=== PATIENT | female | born 1955 | race Caucasian/White ===

== ENCOUNTER 2016-08-19 07:27 | Inpatient (IN) | payer OTHER ==
--- NOTE | 2016-08-19 08:28 | PROVIDER DOCUMENTATION ---
HPI-Neurological Disorder <JuanDoug - Last Filed: 08/19/16 10:13> - General Source: family Unable to obtain history due to:: altered - History of Present Illness-Neuro Headache Location: reports: other (none) Severity: reports: severe Onset/Duration: reports: other (sometime since yest) Timing: reports: still present (daughter noticed change when went over this am) Character of Altered Mental Status: reports: disoriented, confused Any recent trauma/injury?: reports: none New weakness or altered sensation location:: reports: none Cognitive Baseline: alert, oriented x3 Gait Baseline: walks without assistance Associated Symptoms: reports: confusion (says cannot remember) Similar Symptoms Previously?: No Recently seen or treated by another doctor?: No <Steve Erazo - Last Filed: 08/19/16 11:00> - General Chief Complaint: Altered Mental Status Stated Complaint: AMS Time Seen by Provider: 08/19/16 08:20 - History of Present Illness-Neuro Nature of Presenting Problem: daughter gives hx. Says ps has had intermittant sl confusion for sev months,. Was NL self yest. This AM, was much more confused that usual. No fever known. No recent med changes known. (Steve rEazo) Review of Systems - Adult - REVIEW OF SYSTEMS - ADULT Constitutional: reports: no symptoms reported Eyes: reports: no symptoms reported Ears, Nose, Mouth & Throat: reports: no symptoms reported Cardiovascular: reports: no symptoms reported Respiratory: reports: no symptoms reported Genitourinary: reports: no symptoms reported Musculoskeletal: reports: no symptoms reported Integumentary: reports: no symptoms reported Neurological: reports: see HPI Psychiatric: reports: no symptoms reported Endocrine: reports: no symptoms reported Hematologic/Lymphatic: reports: no symptoms reported Allergic/Immunologic: reports: no symptoms reported <Steve Erazo - Last Filed: 08/19/16 11:00> Past History - Adult - PAST MEDICAL HISTORY-ADULT Review of Records: reports: Medications Reviewed <Steve Erazo - Last Filed: 08/19/16 11:00> Physical Exam- Neurological - Physical Exam-Neuro Initial Vital Signs Reviewed: Yes General Appearance: appears well, alert, no apparent distress Eye Exam: bilateral eye: normal inspection, PERRL, EOMI HENMT: normocephalic/atraumatic, moist mucous membranes, normal ENT inspection, pharynx normal Head Injury: no evidence of injury Neck: full range of motion, supple Respiratory: lungs clear, normal breath sounds, no respiratory distress Cardiovascular: no murmur, tachycardia Abdominal Exam: non tender, soft Extremity: normal range of motion, non-tender, 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 Disoriented to all but self.) - Glascow Coma Scale Best Eye Response: (4) open spontaneously Best Verbal Response: (5) oriented Best Motor Response: (6) obeys commands <Steve Erazo - Last Filed: 08/19/16 11:00> Progress - XRAY 1 XRAY: Bilateral XRAY Study: Chest XRAY Interpretation: NEGATIVE - CT/MRI 1 CT Study: Head CT Results: NEGATIVE <Doug Martinez - Last Filed: 08/19/16 10:13> - CONSULTS/PCP/HOSPITALIST Notification #1 *Consult/PCP/Hospitalist*: Manny Time Discussed: 10:57 Consult Disposition: Admit <Steve Erazo - Last Filed: 08/19/16 11:00> - PLAN OF CARE/RESULTS Progress/Plan/Lab Results: Vital Signs Temp Pulse Resp BP Pulse Ox 08/19/16 08:03 97.8 F 137 H 20 187/108 98 Laboratory 08/19/16 08/19/16 08/19/16 09:55 09:55 09:47 WBC 8.47 RBC 5.24 Hgb 15.2 Hct 44.2 MCV 84.4 MCH 29.0 MCHC 34.4 RDW Std Deviation 12.3 Plt Count 218 MPV 11.3 H Immature Gran % (Auto) 0.7 H Neut % (Auto) 72.8 Lymph % (Auto) 16.6 L [place] % (Auto) 8.1 Eos % (Auto) 1.2 Baso % (Auto) 0.6 Immature Gran # (Auto) 0.06 H Neut # (Auto) 6.16 Lymph # (Auto) 1.41 [place] # (Auto) 0.69 H Eos # (Auto) 0.10 Baso # (Auto) 0.05 Sodium Potassium Chloride Carbon Dioxide Anion Gap BUN Creatinine Estimated GFR/1.73 m2 BUN/Creatinine Ratio Glucose Calculated Osmolality Calcium Total Bilirubin AST ALT Alkaline Phosphatase Total Protein Albumin Globulin Albumin/Globulin Ratio TSH Urine Source CLEAN CATCH Urine Color YELLOW Urine Clarity CLEAR Urine pH 6.5 Ur Specific [place] 1.015 Urine Protein 1+(30 mg/dL) A Urine Ketones 1+(Small) A Urine Blood NEGATIVE Urine Nitrite NEGATIVE Urine Bilirubin NEGATIVE Urine Urobilinogen 1+(1 mg/dL) Urine Microscopic RBC Not Reportable Urine WBC 1+ A Urine Microscopic WBC 20-40 A Ur Epithelial Cells <10 Urine Bacteria 2+ Urine Yeast PRESENT Urine Glucose 3+(500 mg/dL) A Urine Opiates Screen NONE DETECTED Ur Oxycodone Screen NONE DETECTED Urine Methadone Screen NONE DETECTED Ur Barbituates Screen NONE DETECTED Ur Tricyclics Screen NONE DETECTED Ur Phencyclidine Scrn NONE DETECTED Ur Amphetamines Screen NONE DETECTED U Methamphetamines Scrn NONE DETECTED Urine MDMA Screen NONE DETECTED U Benzodiazepines Scrn NONE DETECTED Urine Cocaine Screen NONE DETECTED U Cannabinoids Screen NONE DETECTED 08/19/16 08/19/16 08:30 08:30 WBC RBC Hgb Hct MCV MCH MCHC RDW Std Deviation Plt Count MPV Immature Gran % (Auto) Neut % (Auto) Lymph % (Auto) [place] % (Auto) Eos % (Auto) Baso % (Auto) Immature Gran # (Auto) Neut # (Auto) Lymph # (Auto) [place] # (Auto) Eos # (Auto) Baso # (Auto) Sodium 134 L Potassium 3.5 Chloride 95 L Carbon Dioxide 26 Anion Gap 14 BUN 10 Creatinine 0.8 Estimated GFR/1.73 m2 > 60 BUN/Creatinine Ratio 13 Glucose 408 H* Calculated Osmolality 284 Calcium 9.8 Total Bilirubin 0.80 AST 17 ALT 12 Alkaline Phosphatase 148 H Total Protein 7.9 Albumin 4.4 Globulin 4.0 Albumin/Globulin Ratio 1.0 TSH 21.61 H Urine Source Urine Color Urine Clarity Urine pH Ur Specific [place] Urine Protein Urine Ketones Urine Blood Urine Nitrite Urine Bilirubin Urine Urobilinogen Urine Microscopic RBC Urine WBC Urine Microscopic WBC Ur Epithelial Cells Urine Bacteria Urine Yeast Urine Glucose Urine Opiates Screen Ur Oxycodone Screen Urine Methadone Screen Ur Barbituates Screen Ur Tricyclics Screen Ur Phencyclidine Scrn Ur Amphetamines Screen U Methamphetamines Scrn Urine MDMA Screen U Benzodiazepines Scrn Urine Cocaine Screen U Cannabinoids Screen Orders Category Date Time Status HEAD W/O CONTRAST [CT] Stat Exams 08/19/16 08:29 Draft cxr [CHEST-2 VIEWS] [RAD] Stat Exams 08/19/16 08:29 Draft CBC WITH ELECTRONIC DIFF [HEME] Stat Lab 08/19/16 09:47 Completed COMPREHENSIVE METABOLIC PANEL [CHEM] Stat Lab 08/19/16 08:30 Completed TSH Stat Lab 08/19/16 08:[address] W/POSS RFLX CULT [URINALYSIS] Stat Lab 08/19/16 09:55 Completed URINE CULTURE [RM] Routine Lab 08/19/16 10:[address]UG S[address]EN [address] Stat Lab 08/19/16 09:55 Completed 0.9% Sodium Chloride Inj [Ns] 1,000 ml Med 08/19/16 09:16 Discontinued IV 999 mls/hr Insulin Human Reg Dose ([address] [Humulin R Dose ([place] Med 08/19/16 09:31 Discontinued )] 1 dose .ROUTE .STK-MED ONE Insulin Human Regular [Humulin R] Med 08/19/16 09:16 Discontinued 5 unit IV NOW ONE EKG [EKG] Stat Ther 08/19/16 08:35 Ordered (Steve Erazo) Departure <Doug Martinez - Last Filed: 08/19/16 10:13> - Departure Time of Disposition Order: 10:58 Certified Medical Emergency: Emergent <Steve Erazo - Last Filed: 08/19/16 11:00> - Departure DIAGNOSIS: Altered mental status Qualifiers: Altered mental status type: disorientation Qualified Code(s): R41.0 - Disorientation, unspecified Urinary tract infection Qualifiers: Urinary tract infection type: site unspecified Hematuria presence: without hematuria Qualified Code(s): N39.0 - Urinary tract infection, site not specified Disposition: ADMITTED INPATIENT 09 Condition: Good Physician Attestation - Physician Attestation I, the provider, attest to the following statement:: Steve Erazo Physician documentation Attestation:: This documentation recorded by the scribe accurately reflects the service I personally performed and the decisions made by me. <Steve Erazo - Last Filed: 08/19/16 11:00>
[2016-08-19 09:06] LABS: AGAP 14; ALBUMIN 4.4 g/dL (3.5-5.0); ALKALINE PHOSPHATASE 148 U/L (32-104); BUN 10 mg/dL (8-22); CALCIUM 9.8 mg/dL (8.8-10.2); CHLORIDE 95 mmol/L (98-107); COSMO 284; GOT 17 U/L (10-30); GPT 12 U/L (10-36); POTASSIUM 3.5 mmol/L (3.5-5.1); SODIUM 134 mmol/L (136-145); TCO2 26 mmol/L (25-35); TOTAL PROTEIN 7.9 g/dL (6.3-8.3)
--- NOTE | 2016-08-19 09:12 | Diag Imaging Result Document ---
PROCEDURE NAME: HEAD W/O CONTRAST - 08/19/[address]: A CT dose reduction protocol was used. COMPARISON: None. FINDINGS: The ventricles and sulci are normal in size and contour. There is no mass, hemorrhage, or evidence of acute ischemia. The bony calvaria is intact. The visualized paranasal sinuses and mastoid air cells are clear. IMPRESSION: Negative head CT. [facility]
--- NOTE | 2016-08-19 09:14 | Diag Imaging Result Document ---
PROCEDURE NAME: CHEST-2 VIEWS - 08/19/2016 CHEST X-RAY. 2 VIEWS: COMPARISON: None. FINDINGS: The lungs are normally expanded and clear. Heart size and mediastinal contours are normal. No pneumothorax or pleural effusion. IMPRESSION: Negative exam.
[2016-08-19] MEDS ORDERED: NS 1,000 ML IV ONE (09:16)
[2016-08-19] MEDS ORDERED: HUMULIN R IV ONE (09:16)
[2016-08-19] MEDS ORDERED: HUMULIN R DOSE (PARKWAY) ONE (09:31)
[2016-08-19 09:48] LABS: MANUAL DIFF NEEDED? NO
[2016-08-19 09:49] LABS: BASO% 0.6 % (0.0-0.8); EOS% 1.2 % (0.0-10.0); HEMATOCRIT 44.2 % (37.0-47.0); HEMOGLOBIN 15.2 g/dL (12.0-16.0); IMM GRAN# 0.06 X1000 (0.0-0.04); IMM GRAN% 0.7 % (0.0-0.5); LYMPH# 1.41 X1000 (1.2-3.4); LYMPH% 16.6 % (20.5-51.1); MCHC 34.4 g/dL (33-37); MCV 84.4 FL (81-99); MONO# 0.69 X1000 (0.11-0.59); MONO% 8.1 % (1.7-9.3); MPV 11.3 FL (7.4-10.4); NEUT% 72.8 % (42.2-75.2); PLT 218 X1000 (130-400); RBC 5.24 XMIL (4.2-5.4)
[2016-08-19 10:13] LABS: URINE SOURCE CLEAN CATCH
[2016-08-19 10:28] LABS: UR AMPHETAMINES QUAL NONE DETECTED (NONE DETECT); UR BARBITUATES QUAL NONE DETECTED (NONE DETECT); UR BENZODIAZEPIN QUAL NONE DETECTED (NONE DETECT); UR CANNABINOIDS QUAL NONE DETECTED (NONE DETECT); UR COCAINE QUAL NONE DETECTED (NONE DETECT); UR MDMA QUAL NONE DETECTED (NONE DETECT); UR METHADONE QUAL NONE DETECTED (NONE DETECT); UR METHAMPHETAMINE QUAL NONE DETECTED (NONE DETECT); UR OPIATES QUAL NONE DETECTED (NONE DETECT); UR OXYCODONE QUAL NONE DETECTED (NONE DETECT); UR PCP QUAL NONE DETECTED (NONE DETECT); UR TCA QUAL NONE DETECTED (NONE DETECT)
[2016-08-19 10:32] LABS: BILIRUBIN URINE NEGATIVE (NEGATIVE); BLOOD URINE NEGATIVE (NEGATIVE); CLARITY CLEAR (CLEAR); COLOR YELLOW; LEUKOCYTES URINE 1+ (NEGATIVE); NITRITE URINE NEGATIVE (NEGATIVE); PH URINE 6.5; PROTEIN URINE 1+(30 mg/dL) mg/dL (NEGATIVE); SP GRAVITY URINE 1.015; UROBILINOGEN URINE 1+(1 mg/dL)
[2016-08-19 10:37] LABS: URINE WBC 20-40 /HPF (<10)
[2016-08-19 10:38] LABS: URINE CULTURE PL NEEDED? YES; URINE EPITHELIAL CELLS <10 /HPF (<10)
[2016-08-19] MEDS ORDERED: ROCEPHIN 1 GM/NS 50 ML IV ONE (11:00)
[2016-08-19] MEDS ORDERED: ZOFRAN PO PRN (11:07)
[2016-08-19] MEDS ORDERED: TYLENOL PO PRN (11:07)
[2016-08-19] MEDS: ROCEPHIN 1 GM/NS 50 ML IV SCH ×2 (11:15→22:33)
--- NOTE | 2016-08-19 13:24 | EKG Report ---
Test Performed on : 08/19/2016 12:56:26 PM Test Reason : EVAL Blood Pressure : / mmHG Vent. Rate : 077 BPM Atrial Rate : 077 BPM P-R Int : 148 ms QRS Dur : 068 ms QT Int : 372 ms P-R-T Axes : 002 014 020 degrees QTc Int : 420 ms Normal sinus rhythm. Normal ECG No previous ECGs available Unconfirmed Result
[2016-08-19] MEDS: NS 1,000 ML IV SCH (13:50)
[2016-08-19] MEDS: HUMULIN R (PARKWAY) SUBQ SCH ×3 (14:07→21:24)
[2016-08-19 17:35] LABS: HEMOGLOBIN A1C 10.3 % (4.8-6.0)
--- NOTE | 2016-08-19 19:33 | HISTORY AND PHYSICAL ---
PRIMARY CARE PHYSICIAN: Dr. Juice Fallon. CHIEF COMPLAINT: Altered mental status. HISTORY OF PRESENT ILLNESS: This is a 61-year-old female with a history of it looks like maybe hypothyroid and hypertension who presented to the emergency room with family members, stating that the patient has had some intermittent confusion over the last several months. Yesterday she was normal. This morning she was much more confused than usual, being unable to perform her ADLs, unable to function in her own normal setting. The patient at the time of this interview is confused. She is unable to give any past history. When asked where she is, she states "I am here" and points to the bed. Therefore, history is taken from the chart as there is no family present. CT of the head done revealed no mass, hemorrhage or evidence of acute ischemia. Negative CT per Radiology read. Chest x-ray was negative. She was found to have a glucose of 408 and a TSH of 21.61. She was given 5 units of regular insulin, a liter of fluid and admitted for further evaluation and treatment. PAST MEDICAL HISTORY: Hypothyroid. PAST SURGICAL HISTORY: Cholecystectomy. Hysterectomy. SOCIAL HISTORY: Unsure. ALLERGIES: Latex with unknown reaction. HOME MEDICATIONS: We have no idea. We will call family members and try to get a list. REVIEW OF SYSTEMS: Unable to obtain due to patient's mental status. PHYSICAL EXAMINATION: GENERAL: This is a 61-year-old female who is sitting up in the bed in no distress. VITAL SIGNS: Blood pressure is 111/65 with a heart rate of 87, respirations are 18, temperature is 98.2 degrees oral with room air saturations 100%. HEENT: Head is normocephalic, atraumatic. Pupils equal, round, react to light. EOMS are intact. Sclerae are anicteric. Mucous membranes are moist. NECK: Supple. Trachea midline. CARDIOVASCULAR: Regular rate and rhythm S1, S2 appreciated. PULMONARY: Breath sounds are clear. No increased work of breathing noted. BACK: No CVAT. No spine tenderness. MUSCULOSKELETAL: Good range of motion to joints. EXTREMITIES: No clubbing, cyanosis, or edema. Calves are nontender. Pulses are palpable x4. NEUROLOGIC: She does know her name. She can tell you her age. Does not remember her birthday. When asked where she is, she states here and points to the bed. She is not sure if this is the hospital or not. She follows commands intermittently, sometimes stating, "I just don't want to". DIAGNOSTICS: Chest x-ray was negative. CT of the head was negative. WBC was 8.4 with a hemoglobin 15.2, hematocrit 44.2, and platelets 218,000. Sodium is 134, potassium 3.5, BUN 10, creatinine 0.8, with a glucose of 408. After insulin, glucose was down to the mid 200s. TSH was 21.61 with a negative urine drug screen. ASSESSMENT AND PLAN: 1. Altered mental status. 2. We are unsure of the patient's baseline at present. We will obtain neurologic checks, attempt to get further history from the family with a more definite baseline. Her causes could be multifactorial. She does have an elevated glucose, her thyroid level is off. We are unsure of any injuries, although computed tomography scan was negative for a bleed. 3. Hyperglycemia. The patient is unaware of any previous diabetes diagnosis. In her old records, there is no mention. We did obtain a hemoglobin A1c after she got to the floor and it was 10.3, so we know she does have diabetes. We will attempt to find any history of any medications. In the meantime, she will be placed on pattern blood glucose with sliding scale insulin and followed. 4. Thyroid disease. Her thyroid stimulating hormone is 21.61. We will attempt to identify her home medications. In the meantime, we will start her on levothyroxine 75 mcg and trend her labs. 5. For deep venous thrombosis prophylaxis, we will not give any Lovenox as we are really unsure of any falls or injuries she could have had. We will give [employer] and for gastrointestinal prophylaxis we will give Prilosec. 6. The patient's urine was positive for ketones as well as 20-40 microscopic white blood cells, 2+ bacteria and yeast. We will send this for a culture. She was given Rocephin in the emergency room. We will go ahead and continue this. Further treatments pending hospital course. Dictated by STEFAN Pruitt for Leandro Bryant MD
[2016-08-20] MEDS ORDERED: LABETALOL ONE (02:58)
[2016-08-20] MEDS: NS 1,000 ML IV SCH ×2 (03:51→18:17)
[2016-08-20] MEDS: PRILOSEC PO SCH (06:20)
[2016-08-20] MEDS: HUMULIN R (PARKWAY) SUBQ SCH ×5 (06:21→22:22)
[2016-08-20] MEDS ORDERED: SYNTHROID PO SCH ×2 (07:00→07:16)
--- NOTE | 2016-08-20 08:38 | PROGRESS NOTE ---
DATE: 08/20/2016 SUBJECTIVE: The patient states she is a little bit more aware this morning. Knows she is in the hospital. Does not remember why she came to the hospital or how she got here. Does remember having pain in her left foot for which she is seeing orthopedics in [place] and has had an MRI but does not remember the results. PHYSICAL EXAMINATION: Vital Signs: Temperature 98 degrees, pulse 87, respiratory rate 18, BP 111/65, saturation 100% on room air. General: The patient is a well-developed female who appears her stated age of 61. She currently is awake, alert, and appears somewhat oriented. HEENT: Normocephalic, atraumatic. Neck: Supple. CV: Regular rate. Chest: Relatively clear. Abdomen: Soft. Extremities: Moves all extremities. Neurologic: No focal changes. Skin: Warm and dry. No rashes. DIAGNOSTIC DATA: CBC and CMP essentially normal with a glucose at 408, A1c 10.3. TSH 21. ASSESSMENT: 1. Diabetes. Uncertain if she is truly new onset diabetic or if she does not remember being told that she has diabetes in the past, given her acute altered mental status. However, we will place her on Glucophage sliding scale insulin and follow. We will also add Lantus as her A1c is elevated at 10. 2. Hypothyroidism. Again, unclear if patient has actually been taking her Synthroid. Therefore, we will start her back on her Synthroid; however we will increase her to 100 momentarily. We will continue to follow. 3. Acute delirium, unclear etiology. Certainly her significant hyperglycemia and hypothyroidism could be a contributing factor. She has no infectious symptoms currently. It is possible that she has a urinary tract infection. We will start her on Rocephin and follow.
[2016-08-20] MEDS: GLUCOPHAGE PO SCH ×2 (09:07→16:51)
[2016-08-20] MEDS: LANTUS INSULIN (PARKWAY) SUBQ SCH (09:07)
[2016-08-20] MEDS: ROCEPHIN 1 GM/NS 50 ML IV SCH ×2 (11:10→22:22)
[2016-08-20] MEDS ORDERED: ZOFRAN ODT PO PRN (17:39)
[2016-08-20] MEDS ORDERED: ZOFRAN ODT ONE (17:41)
[2016-08-21 06:32] LABS: HEMOGLOBIN 12.9 g/dL (12.0-16.0); MCH 29.4 PG (27-31); MCHC 33.9 g/dL (33-37); MCV 86.6 FL (81-99); MPV 11.2 FL (7.4-10.4); RBC 4.39 XMIL (4.2-5.4)
[2016-08-21] MEDS: PRILOSEC PO SCH (06:40)
[2016-08-21 06:42] LABS: AGAP 7; ALBUMIN 3.3 g/dL (3.5-5.0); ALKALINE PHOSPHATASE 111 U/L (32-104); BUN 8 mg/dL (8-22); CALCIUM 8.6 mg/dL (8.8-10.2); CHLORIDE 105 mmol/L (98-107); COSMO 283; GOT 13 U/L (10-30); GPT 9 U/L (10-36); POTASSIUM 3.9 mmol/L (3.5-5.1); SODIUM 140 mmol/L (136-145); TCO2 27 mmol/L (25-35); TOTAL PROTEIN 5.9 g/dL (6.3-8.3)
[2016-08-21] MEDS: NS 1,000 ML IV SCH (06:42)
[2016-08-21] MEDS: HUMULIN R (PARKWAY) SUBQ SCH ×2 (06:43→10:46)
--- NOTE | 2016-08-21 07:44 | DISCHARGE SUMMARY ---
DATE: 08/21/2016 DISCHARGE DIAGNOSES: 1. Acute delirium secondary to metabolic encephalopathy from diabetes, resolved. 2. New onset diabetes with an A1c of 10..3 blood sugar is currently much improved, below 200. 3. Hypothyroidism. Patient was started on Synthroid 75. This has been increased to 100. She is doing much better. 4. Nausea, resolved. CONSULTATIONS: None. PROCEDURES: None. BRIEF HOSPITAL COURSE: The patient is a 61-year-old female who presented to the emergency department as noted in the HPI, treated in the usual fashion. She was noted to be confused. This appears to be resolved. She knows who she is, where she is, and why she is in the hospital. She was diagnosed with new onset diabetes while she was in the hospital. A1c was 10.3. Blood sugars were 408. Currently on discharge blood sugar is 148-194. She also was noted to have a markedly elevated TSH of 21. She was started on Synthroid while she was in the hospital as well. DISPOSITION: The patient will be discharged home. She will follow up in [address] Fallon, her primary care physician. She will continue to follow up outpatient for her foot injury that she knows that she has already begun the workup process as an outpatient. DISCHARGE MEDICATIONS: Lantus 5 units at bedtime, Glucophage 500 twice a day, Synthroid 100 once a day, Prilosec 400 once a day. Prescriptions were written for each. TIME SPENT: 40 minutes were spent in discharge planning.
[2016-08-21 07:56] VITALS: BP 141/80
[2016-08-21] MEDS: LANTUS INSULIN (PARKWAY) SUBQ SCH (10:40)
[2016-08-21] MEDS: GLUCOPHAGE PO SCH (10:40)
== END 2016-08-21 11:40 | disposition home or self-care (01) | DRG 637 ==
LOC: P.ED 07:27 → P.MEDSURG 11:36
PROVIDERS: ATTEND Family Medicine
DX: E11.65 Type 2 diabetes mellitus with hyperglycemia (principal); G93.41 Metabolic encephalopathy; I10 Essential (primary) hypertension; E03.9 Hypothyroidism, unspecified; Z79.899 Other long term (current) drug therapy
CPT/HCPCS: 36415; 70450; 71020; 80053; 80305; 81001; 82009; 82948; 83036; 84443; 85025; 85027; 87088; 93005; 96361; 96365; 96375; J0696; J1815; J7030